=== PATIENT | male | born 1945 | race Caucasian/White ===

== ENCOUNTER → 2019-11-21 | Outpatient (CLI) | payer MEDICARE, OTHER ==
--- NOTE | 2019-11-23 17:00 | PE ---
EXAMINATION TYPE: PET CT fusion skull to thigh DATE OF EXAM: 11/21/2019 COMPARISON: CT 11/07/2019 Prior PET/CT: None HISTORY: Lung nodule TECHNIQUE: Following the intravenous administration of 11.59 mCi of F-18 FDG, whole body images are performed from the skull base to the midthigh. Images are reviewed on the computer in the coronal, a xial, and sagittal planes. Reconstructed rotating images are created on independent workstation and reviewed on the computer. A localization and attenuation correction CT is performed in conjunction with the PET scan. DLP: 450.82 mGycm SCAN: Initial Blood glucose: 92 mg/dL Average Mediastinum SUV: 1.23 Average Liver SUV: 1.98 FINDINGS: NECK: There is some focal uptake within the right tonsillar pillar in the range of 3.46 SUV. Direct visualization is recommended. Subtle fullness may be present on the localization CT. THORAX: There is intense uptake within the right upper lung field mass with an SUV of 9.63. There is a focus of radiotracer accumulation within the superior right paratracheal region at the sup raclavicular region suspicious for a metastatic lymph node with an SUV value of 3.3. Image 76. There is intense activity within the pretracheal space above the chel with an SUV value of 6.7 suspicious for metastatic lesion. PET image 104. A right perihilar focus of radiotracer may be a hilar lymph no de with an SUV value of 4.6. Image 105. Additional right perihilar lymph node with an SUV value of 5. 26 is present. Image 110. ABDOMEN: No abnormal uptake PELVIS: No abnormal uptake OSSEOUS STRUCTURES: No abnormal uptake LOCALIZATION CT: Some mild fullness of the right tonsillar pillar may be present. Underlying mass how ever is not identified on the localization CT. Direct visualization is recommended. The suspected hyp erintense lymph node in the right paratracheal region is not clearly identified on the localization C T. Hyperintense uptake in the pretracheal right hilar and right peribronchial regions correspond to d ensities in enlarged lymph nodes on the mediastinal windows. COMPARISON: Findings are comparable to the prior study IMPRESSION: 1. Hyperintense mass right upper lobe with enlarged hyperintense lymph nodes within the mediastinum s uspicious for primary lung cancer with metastatic disease. 2. An additional right paratracheal lymph node at the thoracic inlet appears to be present. The lymph node however is not enlarged by CT criteria. 3. Hyperintense uptake within the right tonsillar pillar which has mild asymmetric fullness compared to the left. This would be an unusual location for metastatic disease. Direct visualization is recom mended.
== END | disposition home or self-care (01) ==
LOC: RADPETMAIN 14:43
PROVIDERS: ATTEND Internal Medicine
DX: R59.9 Enlarged lymph nodes, unspecified (principal)
CPT/HCPCS: 78815; A9552

== ENCOUNTER 2019-11-26 10:06 | Day surgery (SDC) | payer MEDICARE, OTHER ==
[2019-11-21 12:29] VITALS: BMI 25.5
[~2019-11-26 10:06] MED LIST: ALBUTEROL NEB (CONC) 2.5 MG/0.5 ML INHALATION ONE; LACTATED RINGERS 1,000 ML IV SCH; LIDOCAINE 2% (PF) 20 MG/ML 5 ML VIAL INHALATION ONE; LIDOCAINE VISCOUS 300 MG/15 ML CUP MUCOUS MEM ONE; SODIUM CHLORIDE 0.9% 1,000 ML IV SCH
[2019-11-26] MEDS ORDERED: DEXAMETHASONE SOD PHOSPHATE 10 MG/ML 1 ML VIAL IV ONE (10:37)
[2019-11-26] MEDS ORDERED: ONDANSETRON 4 MG/2 ML VIAL IVP ONE (10:37)
--- NOTE | 2019-11-26 11:27 | CT ---
EXAMINATION TYPE: CT Chest wo con Pasha Protocol DATE OF EXAM: 11/26/2019 COMPARISON: 11/07/2019 HISTORY: presurgical veran scan CT DLP: 599 mGycm, Automated exposure control for dose reduction was used. CONTRAST: Performed injected with 0 mL of Isovue 300. TECHNIQUE: Axial images were obtained at 5 mm thick sections. Reconstructed images are reviewed on [employer] computer in the coronal plane. FINDINGS: Portion of the thyroid visualized is normal. Right upper lobe mass is again evident. Right hilar adenopathy is present. Pretracheal adenopathy is present. These are somewhat difficult to separate from adjacent vascular structures especially at the hilum. No enlarged mediastinal or hilar adenopathy is evident. The ascending aorta diameter at the level o f the main pulmonary artery is 3.9 cm. The main pulmonary artery diameter at the bifurcation is 2.[address] sections are obtained through the upper abdomen. There is elevation of the right diaphragm . IMPRESSIONS: 1. CT for bronchoscopy guidance. 2. Persistent right upper lobe mass and enlarged hilar and mediastinal adenopathy
[2019-11-26] MEDS ORDERED: ePHEDrine SULFATE/0.9% NACL/PF 50 MG/5 ML SYRINGE IV ONE (12:12)
[2019-11-26] MEDS ORDERED: SUCCINYLCHOLINE CHLORIDE 100 MG/5 ML SYR IV ONE (12:12)
[2019-11-26] MEDS ORDERED: ROCURONIUM BROMIDE 10 MG/ML 5 ML VIAL IV ONE (12:12)
[2019-11-26] MEDS ORDERED: PROPOFOL 10 MG/ML 20 ML VIAL IV ONE (12:12)
[2019-11-26] MEDS ORDERED: fentaNYL (PF) 50 MCG/ML 2 ML AMP ONE (12:12)
[2019-11-26] MEDS ORDERED: LIDOCAINE 1% INJ 10MG/ML (20 ML MDV) ONE (12:12)
[2019-11-26] MEDS ORDERED: SODIUM CHLORIDE 0.9% 500 ML 500 ML IV ONE (13:05)
[2019-11-26 13:15] VITALS: TEMP 97.6
--- NOTE | 2019-11-26 13:46 | XR ---
EXAMINATION TYPE: XR chest 1V portable DATE OF EXAM: 11/26/2019 COMPARISON: CT chest 11/26/2019 INDICATION: Post bronchoscopy TECHNIQUE: Single frontal view of the chest is obtained. FINDINGS: The heart size is normal. The pulmonary vasculature is normal. There is a right perihilar area of increased density. Right lower lobe atelectasis appears to be pres ent IMPRESSION: 1. Right perihilar and right lower lobe infiltrates. Correlate for atelectasis and pneumonia. Underly ing masses could be considered.
[2019-11-26 14:00] VITALS: RESP 17
[2019-11-26 14:17] VITALS: BP 118/71; PULSE 66
--- NOTE | 2019-11-26 19:02 | PCN ---
PROCEDURE NOTE PROCEDURE PERFORMED: Navigational bronchoscopy with transbronchial biopsies of the right upper lobe mass using the Veran navigational system. Bronchoalveolar lavage of the right upper lobe. Transcarinal needle aspiration of lymph nodes and transcarinal core biopsy of the lymph nodes. 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 ANESTHESIA: General anesthesia, patient was placed on mechanical ventilation during the procedure. PROCEDURE DETAILS: The patient underwent a CT of the chest based on the Veran bronchoscopy protocol, and sensors were placed on the chest. The patient was brought up to the endoscopy room suite #1, and in the mean time, I reviewed the CT of the chest, which was done earlier this morning, and mapping of the airways was done. The mapping was loaded into the [employer] system, and exported. Then, the patient was placed in a supine position, intubated by MERCHANDISE HANDLER, and we monitored the patient during the procedure. The bronchoscope was placed through the adapter of the endotracheal tube, and I was able to examine the airways. The posterior segment of the right upper lobe was noted to be abnormal, but the tissue that was noted to be necrotic, but there was no evidence of endobronchial tumor in the right upper lobe bronchus. Then using the bronchoscopy navigational system, multiple transbronchial biopsies were done from the right upper lobe mass. Then, lavage of the right upper lobe was also performed. Attempted to do brushings of the right upper lobe mass, however, I was unable to pass the brush through the bronchoscope. Then we went to the transcarinal/anterior carinal lymph nodes, and multiple transcarinal needle aspirations using a Moses needle performed. Then two transcarinal core biopsies were also done via Moses needle again using the Veran bronchoscopy navigational system. The procedure was well tolerated, all the tissue obtained was sent for different diagnostic studies and no evidence of any immediate complications. The patient will be extubated in the endoscopy suite, and he will be transferred to the recovery room. MMODL / IJN: [id number] /
== END 2019-11-26 14:28 | disposition home or self-care (01) ==
LOC: ORWHC2ENDO 10:06
PROVIDERS: ATTEND Internal Medicine
DX: Z88.5 Allergy status to narcotic agent (principal); Z79.01 Long term (current) use of anticoagulants; Z79.899 Other long term (current) drug therapy; J44.9 Chronic obstructive pulmonary disease, unspecified; Z95.0 Presence of cardiac pacemaker; M10.049 Idiopathic gout, unspecified hand; I10 Essential (primary) hypertension; E03.9 Hypothyroidism, unspecified; Z82.0 Family history of epilepsy and other diseases of the nervous system; Z83.49 Family history of other endocrine, nutritional and metabolic diseases; F17.210 Nicotine dependence, cigarettes, uncomplicated; Z98.890 Other specified postprocedural states; Z98.41 Cataract extraction status, right eye; Z98.42 Cataract extraction status, left eye; Z97.2 Presence of dental prosthetic device (complete) (partial)
CPT/HCPCS: 31629; 31624; 31627; 88108; 88305; 88173; 88342; 88341; 87070; 87205; 71045; 71250; J1100; J2405; J2001; J3010; J0330; J2704; 31625; 31633